=== PATIENT | female | born 1970 | race Caucasian/White ===

== ENCOUNTER 2016-10-29 05:22 | Day surgery (SDC) | payer OTHER ==
[2016-10-22 10:14] LABS: ABSOLUTE BASOPHILS # (AUTO) 0.1 10^3/uL (0.0-0.2); ABSOLUTE EOSINOPHILS # (AUTO) 0.1 10^3/uL (0.0-0.6); ABSOLUTE LYMPHOCYTES (AUTO) 1.6 10^3/uL (0.5-4.7); ABSOLUTE MONOCYTES (AUTO) 0.3 10^3/uL (0.1-1.4); ABSOLUTE NEUT (AUTO) 2.5 10^3/uL (1.7-8.2); BASOPHILS % (AUTO) 1.3 % (0-2); HEMATOCRIT 31.6 % (36.0-47.0); HEMOGLOBIN 10.2 g/dL (12.0-15.5); LYMPHOCYTES % (AUTO) 34.9 % (13-45); MEAN CORPUSCULAR HEMOGLOBIN 26.5 pg (27.0-33.4); MEAN CORPUSCULAR HGB CONC 32.3 g/dL (32.0-36.0); MEAN CORPUSCULAR VOLUME 82 fl (80-97); MONOCYTES % (AUTO) 7.6 % (3-13); RED BLOOD COUNT 3.85 10^6/uL (3.72-5.28); RED CELL DISTRIBUTION WIDTH 15.2 % (11.5-14.0); SEGMENTED NEUTROPHILS % (AUTO) 54.2 % (42-78); WHITE BLOOD COUNT 4.6 10^3/uL (4.0-10.5)
[2016-10-22 10:41] LABS: ANION GAP 13 (5-19); BLOOD UREA NITROGEN 8 mg/dL (7-20); CALCIUM 9.3 mg/dL (8.4-10.2); CARBON DIOXIDE 22 mmol/L (22-30); CHLORIDE 109 mmol/L (98-107); GLUCOSE 112 mg/dL (75-110); POTASSIUM 4.4 mmol/L (3.6-5.0); SODIUM 143.5 mmol/L (137-145)
--- NOTE | 2016-10-22 13:43 | EKG REPORT ---
SEVERITY:- NORMAL ECG - SINUS RHYTHM : Confirmed by: Jay Simms MD 22-Oct-2016 13:42:07
[~2016-10-29 05:22] MED LIST: CEFAZOLIN 2 GM/D5W RTU 2 GM/50 ML RTUPB IV PRN; GABAPENTIN 400 MG CAPSULE PO PRN; LACTATED RINGERS 1000 ML IV PRN; LIDOCAINE 0.5% INJ-PF (5 MG/ML) 50 ML SDV SUBCUT PRN
[2016-10-29 06:02] LABS: APPEARANCE,URINE CLEAR; BILIRUBIN,URINE NEGATIVE (NEGATIVE); GLUCOSE, URINE NEGATIVE (NEGATIVE); KETONES,URINE NEGATIVE (NEGATIVE); LEUKOCYTE ESTERASE,URINE NEGATIVE (NEGATIVE); NITRITE,URINE NEGATIVE (NEGATIVE); PROTEIN,URINE NEGATIVE (NEGATIVE); URINE SPECIFIC GRAVITY 1.016; UROBILINOGEN,URINE NEGATIVE mg/dL (<2.0)
[2016-10-29] MEDS ORDERED: FAMOTIDINE INJ/PF 20 MG/2 ML SDV IV ONE (07:12)
[2016-10-29] MEDS ORDERED: SCOPOLAMINE HYDROBROMIDE 1.5 MG PATCH.TD72 ONE (07:14)
[2016-10-29] MEDS ORDERED: FENTANYL CITRATE INJ/PF 250 MCG/5 ML AMPULE ONE (07:33)
[2016-10-29] MEDS ORDERED: PROPOFOL INJ 200 MG/20 ML VIAL IV ONE (07:33)
[2016-10-29] MEDS ORDERED: ACETAMINOPHEN 100 ML IV ONE (07:33)
[2016-10-29] MEDS ORDERED: MIDAZOLAM 2 MG/2 ML INJ ONE (07:33)
[2016-10-29] MEDS ORDERED: MORPHINE SULFATE 10 MG/ML INJ ONE (07:34)
[2016-10-29] MEDS ORDERED: BUPIVACAINE HCL 0.25 % INJ/PF (2.5 MG/1 ML) 30 ML VIAL ONE (07:58)
[2016-10-29] MEDS ORDERED: OXYCODONE-ACETAMINOPHEN 5-325 MG TABLET PO PRN ×2 (09:31)
[2016-10-29] MEDS ORDERED: FENTANYL CITRATE INJ/PF 100 MCG/2 ML AMPUL IV PRN ×3 (09:31)
[2016-10-29] MEDS ORDERED: PROMETHAZINE HCL INJ 25 MG/1 ML VIAL IV PRN ×2 (09:31)
[2016-10-29] MEDS ORDERED: MORPHINE SULFATE 10 MG/ML INJ IV PRN (09:31)
[2016-10-29] MEDS ORDERED: MEPERIDINE HCL/PF INJ 25 MG/1 ML DISP.SYRIN IV PRN (09:31)
[2016-10-29] MEDS ORDERED: DIPHENHYDRAMINE HCL 50 MG/ML VIAL IV PRN (09:31)
[2016-10-29] MEDS ORDERED: METHYLENE BLUE/PF INJ 100 MG/10 ML SDV ONE (10:11)
[2016-10-29] MEDS ORDERED: ONDANSETRON HCL INJ/PF 4 MG/2 ML SDV IV PRN (10:58)
[2016-10-29] MEDS ORDERED: HYDROCODONE/ACETAMINOPHEN 5-325 MG TABLET PO PRN (10:58)
[2016-10-29] MEDS ORDERED: IBUPROFEN 800 MG TABLET PO PRN (10:59)
--- NOTE | 2016-10-29 11:04 | PDOC DISCHARGE SUMMARY ---
Discharge Summary (SDC) - Discharge Final Diagnosis: Uterine Fibroids Menorrhagia Pelvic adhesions Date of Surgery: 10/29/16 Discharge Date: 10/29/16 Condition: Good Forms: Post Operative Treatment or Instructions: Robotic assisted total laparoscopic hysterectomy, bilateral salpingectomy, and cystoscopy Referrals: LALITHA LUNA MD [NO LOCAL MD] - (Please call the GERIATRIC PHYSICIAN clinic for a 2 and a 6 week follow up appointment at [phone], you may also reach the nurse at this number if you have any questions.) Discharge Diet: As Tolerated Respiratory Treatments at Home: Deep Breathing/Coughing Discharge Activity: Activity As Tolerated, Balance Activity w/Rest, Pelvic Rest , Slowly Increase Activity, No tub bath - You may shower Report the Following to Your Physician Immediately: Vomiting, Increase in Pain, Fever over 101 Degrees, Drainage-Foul Smelling, Increased Vaginal Bleed, Large Clots, Urinary Infection Signs - inability to void or pain in your upper back just under your ribs (kidney pain)
[2016-10-29] MEDS ORDERED: NEOSTIGMINE METHYLSULFATE 10 MG/10 ML VIAL ONE (15:29)
[2016-10-29] MEDS ORDERED: ONDANSETRON HCL INJ/PF 4 MG/2 ML SDV ONE (15:29)
[2016-10-29] MEDS ORDERED: DEXAMETHASONE SOD PHOSPHATE INJ 4 MG/1 ML VIAL ONE (15:29)
[2016-10-29] MEDS ORDERED: LIDOCAINE 2% INJ-PF (20 MG/ML) 10 ML AMPUL ONE (15:29)
[2016-10-29] MEDS ORDERED: GLYCOPYRROLATE INJ 0.4 MG/2 ML VIAL ONE (15:29)
[2016-10-29] MEDS ORDERED: KETOROLAC TROMETHAMINE 60 MG/2 ML SDV ONE (15:29)
[2016-10-29] MEDS ORDERED: ROCURONIUM BROMIDE INJ 50 MG/5 ML VIAL IV ONE (15:29)
[2016-10-29] MEDS ORDERED: SUCCINYLCHOLINE CHLORIDE INJ 200 MG/10 ML VIAL ONE (15:29)
[2016-10-29] MEDS ORDERED: METOCLOPRAMIDE HCL INJ/PF 10 MG/2 ML SDV ONE (15:29)
[2016-10-29 16:18] VITALS: BP 119/67
--- NOTE | 2016-10-31 11:08 | OPERATIVE REPORT E ---
Operative Report NAME: ABRAHAM SCHULTE : 1970 AGE: 46Y DATE OF SURGERY: 10/29/2016 ROOM: 211 PREOPERATIVE DIAGNOSES: 1. Uterine fibroids. 2. Menorrhagia. POSTOPERATIVE DIAGNOSES: 1. Uterine fibroids. 2. Menorrhagia. PROCEDURE: Robotic assisted total laparoscopic hysterectomy, bilateral salpingectomy, and cystoscopy. SURGEON: LALITHA LUNA M.D. DESIGN LEAD: Dr. Gray Gaston ANESTHESIA: General. COMPLICATIONS: None. ESTIMATED BLOOD LOSS: 250 mL. URINE OUTPUT: Clear at the end of the procedure. SPECIMENS: Uterus, cervix, entire right fallopian tube, and proximal as well as fimbriated segments of the left fallopian. FINDINGS: Enlarged uterus with multiple fibroids, adhesions of bilateral ovaries to the pelvic sidewall and pelvic floor, dense adhesions of the mid portion of the tubal segment on the left to the ovary and IP ligament. INDICATIONS: This is a 46-year-old female with a history of menorrhagia and uterine fibroids refractory to medical management. After discussing the risks, benefits, and alternatives including but not limited to observation, medical management, endometrial ablation, myomectomy, operative hysteroscopy, open abdominal hysterectomy, and total vaginal hysterectomy were discussed with the patient, she elected for the above procedure. PROCEDURE NOTE: After the patient was properly consented, she was taken to the operating room where general anesthesia was introduced with endotracheal intubation. The patient was transferred to a dorsal lithotomy position with adjustable Coleman stirrups and prepped and draped in the usual sterile fashion. A surgical time out was completed. We began with placement of a Hewitt catheter and placement of a large V-Care uterine manipulator in the typical fashion. Gloves were changed and we proceeded above where 0.25% plain Marcaine local anesthetic was placed supraumbilically. A 12 mm skin incision was made with a scalpel, followed by a Veress needle introduction into the peritoneal cavity with correct placement ascertained by a drop in CO2 pressure to 2 mmHg. Pneumoperitoneum was established to a pressure of 15 mmHg. A 12 mm bladeless trocar was advanced into the pneumoperitoneum and immediate visualization with the camera demonstrated an atraumatic entry. We subsequently placed 2 right and 1 left lateral ports following the typical routine of local anesthetic followed by a skin incision followed by the placement of an 8 mm port under direct visualization. With all ports in place, the patient was put in steep Trendelenburg position. The robot was then docked and I scrubbed out and proceeded to the robotic console while Dr. Gaston attended to the photo studio assistant port. The pelvic anatomy was inspected and the findings noted above. The ureters were identified by peristalsis in their usual course at the pelvic brim bilaterally. Dissection was begun on the right side using a vessel sealer and fenestrated bipolar graspers. The round ligament on the right was cauterized and transected. The fallopian tube was dissected from the tubo-ovarian ligament. This dissection was continued along the lateral portion of the uterine body to connect at the previously transected round ligament. The broad ligament was opened and the uterine artery was dissected out, identified, cauterized and transected at the area next to the uterine lower segment. At this time, dissection of the *------* peritoneum was extended down across the inferior/anterior portion of the uterus and cervix to create the bladder flap which is reduced inferiorly. The same dissection was repeated on the left side, however, the entire tube was not able to be freed. It appeared that patient had previously had a tubal ligation. The distal portion of her left tube was dissected and freed from the area where it was laying on top of the ovary; however, there was a small 1 cm portion of the mid tubal segment that was densely adhesed to the ovary, pelvic side wall, and the IP ligament. This portion was left in place. The proximal segment of the tube which was still attached to the uterine cornual was also removed with the dissection. This left side dissection proceeded otherwise in the same fashion as the dissection described on the right. The bladder flap was connected from the left side to meet the dissection initiated on the right and was reduced inferiorly. At this time, the vessel sealer had locked due to inability for it to retract its blade. No harm was caused to the patient during this malfunction. That instrument was removed from the pelvis and the monopolar scissors were inserted. Next, the edge of the V-Care cervical cap was identified and a colpotomy was initiated with monopolar cautery and carried out circumferentially. Both of the uterosacral ligaments and additional vascular supply were coagulated with the bipolar, fenestrated graspers, and then cut with the monopolar scissors. The circumferential dissection around the specimen was completed. It was free and pulled through the vagina, and the fimbriated portion of the left tube that had been separately dissected off was also passed through the vagina and removed from the patient. The vaginal cuff was then closed with a running V-Loc suture of 3-0 Monocryl with 180-day delayed absorbancy. We incorporated the uterosacral pedicles for support. The pelvis was then copiously irrigated and hemostasis was noted to be excellent. FloSeal was applied over the area of dissection in the vaginal cuff. The abdomen was deflated and the robot was undocked. The instruments were all removed, but the ports were left in place. CO2 insufflation was turned off. The patient was flattened out somewhat from the steep Trendelenburg position to a more neutral position. Attention was turned to below with a cystoscopy was completed in the typical fashion. The bladder was noted to be intact with no visible suture. There was some appearance of bruising along the trigone region towards the patient's left ureteral orifice, however, this UO appeared to be functioning normally and several forceful ureteral jets were visualized from both ureteral orifices. At this time, the bladder was then drained and the cystoscopy was completed. Gloves were changed and attention was turned back to the abdomen, where all of the ports were removed. The 12-mm port site fascia was closed with a 0 Vicryl suture and the skin of the 8 mm and 12 mm laparoscopic ports were closed with 4-0 Monocryl in a subcuticular fashion and a Dermabond dressing was applied. Anesthesia was reversed. Sponge, lap, and needle counts were correct at the end of the procedure. The patient was taken to the PACU in stable condition. DICTATING PHYSICIAN: LALITHA LUNA M.D. [id number] PHY#: [id number] ID: [id number] JOB#: [id number] ACCT: [id number] cc:LALITHA LUNA M.D. >
== END 2016-10-29 16:45 | disposition home or self-care (01) ==
LOC: OROUT 05:22 → 2N 12:16 → OROUT 16:45
PROVIDERS: ATTEND Obstetrics & Gynecology
PROC: 0UTC4ZZ Resection of Cervix, Percutaneous Endoscopic Approach (ICD-10-PCS; 2016-10-29)
PROC: 0UT74ZZ Resection of Bilateral Fallopian Tubes, Percutaneous Endoscopic Approach (ICD-10-PCS; 2016-10-29)
PROC: 8E0W4CZ Robotic Assisted Procedure of Trunk Region, Percutaneous Endoscopic Approach (ICD-10-PCS; 2016-10-29)
PROC: 0UT94ZZ Resection of Uterus, Percutaneous Endoscopic Approach (ICD-10-PCS; principal; 2016-10-29 07:30)
DX: D25.2 Subserosal leiomyoma of uterus (principal); N92.0 Excessive and frequent menstruation with regular cycle; N73.6 Female pelvic peritoneal adhesions (postinfective); N72 Inflammatory disease of cervix uteri; D64.9 Anemia, unspecified; D25.9 Leiomyoma of uterus, unspecified; N83.8 Other noninflammatory disorders of ovary, fallopian tube and broad ligament; E11.9 Type 2 diabetes mellitus without complications; E66.3 Overweight; Z68.28 Body mass index [BMI] 28.0-28.9, adult; Z79.4 Long term (current) use of insulin; Z79.899 Other long term (current) drug therapy; Z88.5 Allergy status to narcotic agent
CPT/HCPCS: 58573; S2900; 36415; 80048; 81001; 81025; 85025; 86850; 86900; 86901; 88307; 93005; 93010; J0131; J0330; J0690; J1100; J1885; J2250; J2270; J2405; J2704; J2765; J3010; J3490; Q9968; S0028

== ENCOUNTER → 2018-01-31 | Outpatient (CLI) | payer OTHER ==
--- NOTE | 2018-01-31 15:36 | WOMENS IMAGING REPORT ---
EXAM DESCRIPTION: BILAT SCREENING MAMMO W/CAD COMPLETED DATE/TIME: 01/31/2018 3:15 pm REASON FOR STUDY: ROUTINE SCREENING;Z12.31 Z12.31 ENCNTR SCREEN MAMMOGRAM FOR MALIGNANT NEOPLASM OF ERMA COMPARISON: No previous TECHNIQUE: Standard craniocaudal and mediolateral oblique views of each breast recorded using digita l acquisition. LIMITATIONS: None. FINDINGS: No masses, calcifications or architectural distortion. No areas of suspicion. Read with the assistance of CAD. .[facility] - R2 Cenova Version 1.3 .[facility] - R2 Cenova Version 1.3 .[facility] - R2 Cenova Version 2.4 .[facility] [place] R2 Cenova Version 2.4 .[facility] - R2 Type [employer]ment [employer]er Version 9.2 IMPRESSION: NORMAL MAMMOGRAM. BIRADS 1. BREAST DENSITY: c. The breasts are heterogeneously dense, which may obscure small masses. BIRAD: 1 NEGATIVE RECOMMENDATION: ROUTINE SCREENING Please consider bilateral screening tomosynthesis in January 2019 given heterogeneously dense tissue COMMENT: The patient has been notified of the results by letter per SA requirements. Additional no tification policies are in place for contacting patient with suspicious or incomplete findings. Quality ID #[id number]: The [employer] recommends an annual screening mammogram for women aged 40 years or over. This facility utilizes a reminder system to ensure that all patients receive reminder letters, and/or direct phone calls for appointments. This includes reminders for routine scr eening mammograms, diagnostic mammograms, or other Breast Imaging Interventions when appropriate. Th is patient will be placed in the appropriate reminder system. The [employer] (A[employer]) has developed recommendations for screening MRI of the breast s in certain patient populations, to be used in conjunction with mammography. Breast MRI surveillanc e may be appropriate for women with more than 20% lifetime risk of developing breast cancer as deter mined by genetic testing, significant family history of the disease, or history of mantle radiation f or Hodgkins Disease. ACR Practice Guidelines 2008. TECHNICAL DOCUMENTATION: FINDING NUMBER: (1) ASSESSMENT: (1) JOB ID: [id number] [employer]- All Rights Reserved Reading location - IP/workstation name: [email or web address]
== END ==
LOC: WI 15:05
PROVIDERS: ATTEND Physician Assistant Medical
DX: Z12.31 Encounter for screening mammogram for malignant neoplasm of breast (principal)
CPT/HCPCS: 77067